=== PATIENT | female | born 1965 | race Caucasian/White ===

== ENCOUNTER 2017-01-19 04:19 | Emergency (ER) | payer BC, OTHER ==
[~2017-01-19] VITALS: Ht 165.1 cm; Wt 80.3 kg
[~2017-01-19 04:19] MED LIST: ASPIRIN81 MG PO; EXTRA STRENGTH500 MG PO; IBUPROFEN600 MG PO; LISINOPRIL2.5 MG PO; PRILOSEC20 MG PO; PSEUDOEPHEDRINE60 MG PO; SYNTHROID150 MCG PO; TRIAMTERENE-HC1 EAC1 PO; ULTRAM50 MG PO
[2017-01-19] MEDS ORDERED: LOSARTAN POTASS25 MG PO (04:56)
[2017-01-19] MEDS ORDERED: VITAMIN D1000 UNI1 PO (04:56)
[2017-01-19] MEDS ORDERED: PROTONIX40 MG PO (06:54)
--- NOTE | 2017-01-20 07:41 | EKG ---
[facility] [address] [facility] [place] [address] Signed Normal sinus rhythm Normal ECG No previous ECGs available Confirmed by ABEL CARVAJAL MD ([id number]) on 01/20/2017 7:41:28 AM Electronically Signed By: ABEL CARVAJAL MD 01/20/17 0741 PATIENT NAME: DIOMEDES BAER Electrocardiogram DATE OF : 61 PHYSICIAN: ABEL CARVAJAL MD REPORT #: [id number] REPORT IS CONFIDENTIAL AND NOT TO BE RELEASED WITHOUT AUTHORIZATION
== END 2017-01-19 07:40 | disposition home or self-care (01) ==
LOC: ED 04:19
DX: R07.2 Precordial pain (principal); I10 Essential (primary) hypertension; K21.9 Gastro-esophageal reflux disease without esophagitis; E03.9 Hypothyroidism, unspecified; Z79.899 Other long term (current) drug therapy
CPT/HCPCS: 71010; 80053; 84484; 85025; 85610; 85730; 93005; 93010; 96374; 99284

== ENCOUNTER 2019-03-09 19:40 | Emergency (ER) | payer BC, OTHER ==
[~2019-03-09] VITALS: Ht 165.1 cm; Wt 84.8 kg
[~2019-03-09 19:40] MED LIST changes: +LOSARTAN POTASS25 MG PO; +PROTONIX40 MG PO; +VITAMIN D1000 UNI1 PO
[2019-03-09] MEDS ORDERED: B COMPLEX WITH1 EACH PO (20:12)
[2019-03-09] MEDS ORDERED: AUGMENTIN 875-1 EACH PO (20:15)
[2019-03-09] MEDS ORDERED: [UNRECOGNIZED DRUG - OTHER] PO (20:15)
== END 2019-03-09 21:55 | disposition home or self-care (01) ==
LOC: ED 19:40
DX: B34.9 Viral infection, unspecified (principal); I10 Essential (primary) hypertension; E03.9 Hypothyroidism, unspecified; Z88.7 Allergy status to serum and vaccine; Z88.8 Allergy status to other drugs, medicaments and biological substances; Z79.899 Other long term (current) drug therapy
CPT/HCPCS: 87502; 99284

== ENCOUNTER 2019-08-15 09:17 | Day surgery (SDC) | payer BC, OTHER ==
[~2019-08-15] VITALS: Ht 165.1 cm; Wt 84.8 kg
[~2019-08-15 09:17] MED LIST changes: +AUGMENTIN 875-1 EACH PO; +B COMPLEX WITH1 EACH PO; +OMEPRAZOLE20 MG PO; +[UNRECOGNIZED DRUG - OTHER] PO
--- NOTE | 2019-08-16 00:40 | OR ---
[facility] [address] [place], [place] [address] Signed DATE OF OPERATION: 08/15/2019 SURGEON: Fredy Winters MD PREOPERATIVE DIAGNOSES: 1. Burping. 2. Father with stomach cancer. 3. Gastroduodenitis (2017). 4. Mild esophageal dysmotility (2017). POSTOPERATIVE DIAGNOSIS: Mild gastroduodenitis. PROCEDURE: EGD with CLOtest and biopsies of the pyloric bulb, antrum, and mid esophagus. ESTIMATED BLOOD LOSS: None. INDICATIONS: Diomedes is a 54-year-old female, who was asked to see me for her upper endoscopy. She was complaining of frequent burping. She said it was actually driving her crazy. She tried Pepcid and other icsy-myp-shqhzjx medications without success. When she went on omeprazole from her primary care provider, she said within a few days she was feeling much better. By the end of two weeks, she said it is much better. However, she is concerned because her father had some type of stomach cancer when she was quite young. We did do an upper endoscopy for her in 2017. At that time, she had gastroduodenitis with a negative CLOtest. She also had a barium swallow at that time, which did not reveal hiatal hernia. However, she had some mild esophageal dysmotility. Her more recent blood work showed negative H pylori. I had met with Diomedes in the office. I gave her a pamphlet on upper endoscopy. We did review the nature of that test along with its risks including, but not limited to gas bloating, crampy abdominal pain, bleeding, perforation requiring surgery, and missed diagnosis. We also discussed the need for IV conscious sedation. She had told us that she is a light weight and it does not take much to put her out. She had expressed understanding and wished to proceed. PROCEDURE NOTE: Diomedes was taken into our endoscopy suite and placed in the supine semi-recumbent position. The posterior oropharynx was anesthetized with Hurricaine spray. A bite block was utilized for the case. She was given 5 mg of Versed and 100 mcg of fentanyl Electronically Signed By: FREDY WINTERS MD 08/16/19 0040 PATIENT NAME: DIOMEDES BAER OPERATIVE REPORT DATE OF : 61 REPORT #: [id number] PHYSICIAN: FREDY WINTERS MD PCP: THANIA PONCE REPORT IS CONFIDENTIAL AND NOT TO BE RELEASED WITHOUT AUTHORIZATION [facility] [address] [place], [place] [address] Signed to cover the whole case. The adult gastroscope had been introduced and advanced under direct visualization out into the third portion of the duodenum. The duodenum was unremarkable. However, the pyloric bulb and the stomach showed some mild patchy erythematous changes. She more than likely has resolving gastroduodenitis on her omeprazole. We went and took a biopsy from the pyloric bulb as well as the antrum for pathologic review. We took an additional biopsy of the antrum for CLOtest. Upon retroflexion of the scope, she really does not have much of anything in the way of a hiatal hernia. The scope was then withdrawn up through the area of GE junction, which was compliant without stricture. We saw no ulcerations in the pyloric channel or the stomach. No evidence of any cancer. Her GE junction was compliant without stricture. The Z-line is very minimally disrupted. There was no Aguillon's mucosa. There was no distal esophagitis. The distal, middle and upper esophagus were unremarkable. We went ahead and took a biopsy of the midesophagus because of previous history of mild esophageal dysmotility on her barium swallow. After this, the gas had been suctioned out and the gastroscope removed. Diomedes tolerated the procedure quite well. RECOMMENDATIONS: I will see Diomedes back in my office in 7 to 14 days to review her results. In the meantime, she will stay on her omeprazole. MD DIVINA Anderson/SHONDAL /[id number] cc: MD Felipe Anderson PA Copies: FREDY WINTERS MD, BRYAN LEE PA ~ Electronically Signed By: FREDY WINTERS MD 08/16/19 0040 PATIENT NAME: DIOMEDES BAER OPERATIVE REPORT DATE OF : 61 REPORT #: [id number] PHYSICIAN: FREDY WINTERS MD PCP: THANIA PONCE REPORT IS CONFIDENTIAL AND NOT TO BE RELEASED WITHOUT AUTHORIZATION
--- NOTE | 2019-08-17 14:10 | PATH ---
[facility] [address] [place], [place] [address] Signed SPECIMEN(S): A DUODENAL BIOPSY SPECIMEN(S): B ANTRUM/ANTRAL BIOPSY SPECIMEN(S): C MID ESOPHAGEAL BIOPSY SPECIMEN SOURCE: A. DUODENAL BIOPSY B. ANTRUM/ANTRAL BIOPSY C. MID ESOPHAGEAL BIOPSY CLINICAL HISTORY: Indigestion, family history of stomach CA. Postop: Gastroduodenitis. MICROSCOPIC DESCRIPTION: Histologic sections of all submitted blocks are examined by light microscopy. These findings, together with the gross examination, support the pathologic diagnosis. FINAL PATHOLOGIC DIAGNOSIS: A. Duodenum, biopsy: - Duodenal mucosa with mild increased lamina propria chronic inflammation. - Negative for dysplasia or malignancy. B. Stomach, antrum, biopsy: - Antral mucosa with mild chronic, inactive gastritis. - Negative for Helicobacter organisms on HE stain. - Negative for dysplasia or malignancy. C. Esophagus, middle, biopsy: - Squamous mucosa no histopathologic abnormality. - Negative for intestinal metaplasia, dysplasia, or malignancy. NAL:emb:C2NR GROSS DESCRIPTION: Three specimens are received in three containers, labeled "KG." A. The specimen, labeled "KG, duodenal biopsy," is received in formalin and consists of one pink-hanley soft tissue fragment that measures 0.3 cm in greatest dimension. The specimen is entirely submitted in cassette (A1). B. The specimen, labeled "KG, antrum biopsy," is received in formalin and consists of one pink-hanley soft tissue fragment that measures 0.2 cm in greatest dimension. The specimen is entirely submitted in cassette (B1). C. The specimen, labeled "KG, mid esophagus biopsy," is received in formalin PATIENT NAME: DIOMEDES BAER PATHOLOGY DATE OF : 61 REPORT #: [id number] PHYSICIAN: JENNY KIRK PCP: THANIA PONCE REPORT IS CONFIDENTIAL AND NOT TO BE RELEASED WITHOUT AUTHORIZATION [facility] [address] [place] [address] Signed and consists of one pink-hanley soft tissue fragment that measures 0.2 cm in greatest dimension. The specimen is entirely submitted in cassette (C1). JS (under the direct supervision of a pathologist) The Gross Description was prepared using a voice recognition system. The report was reviewed for accuracy; however, sound-alike word errors, addition and/or deletions may occur. If there is any question about this report, please contact Client Services. PERFORMING LABORATORY: The technical component was performed by [facility] [address] (Slackline Operator: Deepthi Hogan MD; CLIA# [id number]). [facility] [address] [place] [address] (Slackline Operator: Roderick Blair MD; CLIA# [id number]). Diagnostician: Tana Zabala MD Pathologist Electronically Signed 08/17/2019 Copies: ~ PATIENT NAME: DIOMEDES BAER PATHOLOGY DATE OF : 61 REPORT #: [id number] PHYSICIAN: JENNY KIRK PCP: THANIA PONCE REPORT IS CONFIDENTIAL AND NOT TO BE RELEASED WITHOUT AUTHORIZATION
== END 2019-08-15 12:28 | disposition home or self-care (01) ==
LOC: DS 09:17
PROVIDERS: Colon & Rectal Surgery
PROC: 0DB78ZX Excision of Stomach, Pylorus, Via Natural or Artificial Opening Endoscopic, Diagnostic (ICD-10-PCS; 2019-08-15)
PROC: 0DB28ZX Excision of Middle Esophagus, Via Natural or Artificial Opening Endoscopic, Diagnostic (ICD-10-PCS; 2019-08-15)
PROC: 0DB98ZX Excision of Duodenum, Via Natural or Artificial Opening Endoscopic, Diagnostic (ICD-10-PCS; principal; 2019-08-15 10:30)
DX: K29.50 Unspecified chronic gastritis without bleeding (principal); K29.80 Duodenitis without bleeding; E89.0 Postprocedural hypothyroidism; Z88.7 Allergy status to serum and vaccine; Z80.9 Family history of malignant neoplasm, unspecified; Z80.0 Family history of malignant neoplasm of digestive organs; Z79.899 Other long term (current) drug therapy; Z98.890 Other specified postprocedural states; Z88.8 Allergy status to other drugs, medicaments and biological substances
CPT/HCPCS: 86677; G0500; J2250; J3010; J7121

== ENCOUNTER 2020-09-05 18:20 | Observation (INO) | payer BC, OTHER ==
[~2020-09-05] VITALS: Ht 165.1 cm; Wt 91.5 kg
--- NOTE | ~2020-09-05 | OR ---
[facility] [address] [place], [place] [address] Draft DATE OF OPERATION: 09/06/2020 SURGEON: Annie Blair MD PREOPERATIVE DIAGNOSIS: Bimalleolar fracture dislocation, left. POSTOPERATIVE DIAGNOSIS: Bimalleolar fracture dislocation, left. PROCEDURE PERFORMED: Open reduction and internal fixation of left bimalleolar fracture. PARKING LOT ATTENDANT: None. ANESTHESIA: General. BLOOD LOSS: None. TOURNIQUET TIME: 49 minutes. IMPLANTS: A 7-hole 1/3 tubular plate with 10 screws total. BRIEF HISTORY: Diomedes is a 55-year-old female who suffered a ground level fall on the ice last night. She was transported to the emergency department, where they contacted me and agreed to admit the patient for surgery this morning. Risks and benefits of surgery were discussed with her and she elected to proceed. DESCRIPTION OF PROCEDURE: Once consent was obtained, she was taken to the operating room. After adequate anesthesia, she was placed on operating room table, all downside pressure points were well padded. The left leg was placed in well-padded proximal thigh tourniquet and prepped and draped in a standard sterile fashion. The leg was exsanguinated using Esmarch bandage, tourniquet inflated to 250 mmHg. The lateral side was approached 1st PATIENT NAME: DIOMEDES BAER OPERATIVE REPORT DATE OF : 61 REPORT #: [id number] PHYSICIAN: ANNIE BLAIR MD PCP: THANIA PONCE-Santiago REPORT IS CONFIDENTIAL AND NOT TO BE RELEASED WITHOUT AUTHORIZATION [facility] [address] [place], [place] [address] Draft through a longitudinal incision, carried through the skin and subcutaneous tissue and directly down on the bone. Subperiosteal dissection was taken anteriorly and posteriorly and the fracture was easily identified, distracted and cleared of debris. It was then reduced with inversion and manipulation. It was then clamped into position. The standard AO lag screw was then placed from anterior to posterior, holding the fracture well reduced. The was then placed in the posterior lateral aspect of the fibula and contoured distally to fit the bone. It was then held with the central screw and checked using image intensifier. It was found to be intact. The remaining screw holes were drilled and the distal two screws were filled with locking screws. Final radiographs showed the plate to be well placed and the fracture to be anatomically reduced. Attention was then turned to the medial side, which was approached longitudinally. The care was taken to protect the cephalic vein. The soft tissue was then dissected and the fracture was reduced. It was checked using image intensifier and 1.6 mm K-wires were placed in the posterior aspect of the malleolus. A screw was then placed from the tip of the malleolus into the body of the tibia, her bone was quite soft. The screw was applied and the K-wire was removed and a 2nd screw was placed posteriorly, secured in the malleolus in good rotation. The final radiograph showed the fracture to be well reduced and hardware in appropriate position. Both wounds were copiously irrigated with antibiotic solution, closed with 2-0 Monocryl and 3-0 nylon in interrupted fashion. Both wounds were then dressed with Allevyn dressing. Sterile cast padding and a posterior splint with stirrups. She tolerated the procedure well. All sponge, needle, and instrument counts were correct. Annie Blair MD BA/DONNA /[id number] Copies: ~ PATIENT NAME: DIOMEDES BAER OPERATIVE REPORT DATE OF : 61 REPORT #: [id number] PHYSICIAN: ANNIE BLAIR MD PCP: THANIA PONCE REPORT IS CONFIDENTIAL AND NOT TO BE RELEASED WITHOUT AUTHORIZATION
--- NOTE | 2020-09-05 20:42 | NUR ---
RECEIVED TELEPHONE REPORT FROM ED RN BARTOLO AT THIS TIME. AWAITING pt ARRIVAL TO FLOOR.
--- NOTE | 2020-09-05 22:00 | NUR ---
THIS PHARMACOLOGIST WHEELED PT TO THE MEDSUR FLOOR VIA ED BED, 3 PERSON TRANSFER OF PT TO NEW BED, VITALS DONE, JUDICIAL CLERK IN FOR ASSESMENT
--- NOTE | 2020-09-05 22:55 | NUR ---
IN TO ASST RN WITH PUTTING PT ON THE BEDPAN, PT WILL CALL WHEN READY
--- NOTE | 2020-09-05 22:56 | NUR ---
pt ARRIVED TO THE FLOOR AT 2205 VIA ED STRETCHER. ABLE TO ASSIST WITH TRANSFER AND SCOOTED SELF TO BED. A/OX4, VSS. IV FLUIDS STARTED AND INFUSING AT 125MLS.HR, SITE WNL AND FLUSHES EASILY. RR 17, EVEN AND UNLABORED, PRN DILAUDID GIVEN FOR 9/10 PAIN IN LLE. BOOT IN PLACE. GENERALIZED EDEMA WITH DEVELOPING BRUISING NOTED, PEDAL PULSE OBTAINED VIA DOPPLER. pt PLACED ON BED SUTHERLAND PER pt REQUEST, INSTRUCTED TO CALL SKETCH MAKER WHEN COMPLETE. pt VERBALIZED UNDERSTANDING, NO FURTHER NEEDS. CALL LIGHT IN REACH.
--- NOTE | 2020-09-05 23:19 | NUR ---
IV PUMP ALARMING, ISSUE RESOLVED. SITE WNL, FLUIDS RESUMED PER MD ORDERS. pt DROWSY, RR EVEN AND UNLABORED. O2 SAT IN THE 90'S, HR WNL. pt DENIES VOIDING, BUT WISHES TO REMAIN ON BED SUTHERLAND. WILL MONITOR, CALL LIGHT IN REACH.
--- NOTE | 2020-09-05 23:30 | NUR ---
IN TO CHECK ON PT, PT COULD NO LONGER FEEL URGE TO VOID, PT ABLE TO PULL BEDPAN OUT, NO FURTHER NEEDS AT THIS TIME
--- NOTE | 2020-09-06 00:20 | NUR ---
pt NPO AT THIS TIME FOR TENATIVE SURGERY, NO FURTHER NEEDS. CALL LIGHT IN REACH.
--- NOTE | 2020-09-06 00:55 | NUR ---
IN TO CHE PT STOPPED DRINKING WATER PER NPO @ 12MIDNIGHT, PT IS RESTING AT THIS TIME
--- NOTE | 2020-09-06 01:50 | NUR ---
IN TO GET 2AM VITALS, PT ASK TO GET ON THE BEDPAN FOR A VOID ATTEMPT, WILL CALL WHEN READY
--- NOTE | 2020-09-06 02:03 | NUR ---
IN TO REMOVE SOILED DRAWSHEET, IV PUMP BEEPING AT THIS TIME, AN RN HAS BEEN INFORMED, NO FURTHER NEEDS AT THIS TIME
--- NOTE | 2020-09-06 02:05 | NUR ---
voided large amounts of urine, pad, gown and bedding changed. Coop.
--- NOTE | 2020-09-06 03:27 | NUR ---
pt RESTING QUIETLY IN BED, AWAKENS TO VOICE. DENIES NEEDS AT THIS TIME. CALL LIGHT IN REACH. RR EVEN AND UNLABORED.
--- NOTE | 2020-09-06 06:45 | NUR ---
AM VITALS DONE, PUT PT ONTO BEDPAN, WILL CALL WHEN READY
--- NOTE | 2020-09-06 06:55 | NUR ---
ASSESSMENT COMPLETE, NO NEW CHANGES OR CONCERNS. pt DENIES PAIN AT REST, PEDAL PULSE TO LEFT FOOT OBTAINED VIA DOPPLER. BOOT REMAINS IN PLACE. NEW BAG IV FLUIDS HUNG AND INFUSING AT 125MLS/HR, SITE WNL. pt RECENTLY SEEN BY DR AKERS, NEW ORDERS RECEIVED. LR WITH STRAIGHT TUBING HUNG BY HAT BODY SORTER MANDY. pt PLACED ON BEDPAN FOR POSSIBLE BM, INSTRUCTED TO CALL WHEN DONE. pt VERBALIZED UNDERSTANDING. CALL LIGHT IN REACH.
--- NOTE | 2020-09-06 07:30 | NUR ---
Pt up to commode. Remains non-weight bearing on LLE d/t fx. Voided 350 mls clear yellow urine. Back to bed. Pt reports minimal pain at rest, boot on LLE, bruising to left parker and mild-moderate swelling noted. CMS assessment WNL. Pre-surgical wipedown completed. Unable to have pt sign informed consent as still needs MD signature. Pt reports Dr. Blair explained procedure to her this am. Will send consent form w/ pt to surgery. Wedding ring removed and placed in sterile cups w/ pt name and room number. LR hung on straight tubing w/ ancef. Pt awaiting surgery. No other needs. Call light in reach.
[2020-09-06] MEDS ORDERED: LEVOTHYROXINE112 MCG PO (08:07)
--- NOTE | 2020-09-06 08:15 | NUR ---
PATIENT OFF FLOOR FOR SURGERY
--- NOTE | 2020-09-06 09:45 | NUR ---
Attempted to see pt, she has gone to surgery.
[2020-09-06] MEDS ORDERED: DICLOFENAC SOD100 G1 TOP (10:15)
--- NOTE | 2020-09-06 10:15 | NUR ---
Notified by special agent in charge, pt will dc from PACU.
[2020-09-06] MEDS ORDERED: CALCIUM CIT 311 EACH PO (10:18)
[2020-09-06] MEDS ORDERED: HYDROCODON-ACE1 EA11 PO ×2 (10:33→10:39)
[2020-09-06] MEDS ORDERED: DICLOFENAC SODI75 MG PO (10:33)
--- NOTE | 2020-09-06 10:35 | NUR ---
09/06/20 1035 Yolis Presley 1028- PT ARRIVES TO PACU NONAROUSABLE TO NOXIOUS STIMULI. RESP EVEN AND UNLABORED. OXYGEN SAT HIGH 90'S TO 100% ON 6L VIA MASK. 1031- ICE PACKS APPLIED TO PT'S LEFT ANKLE WITH DRESSING IN BETWEEN SKIN AND ICE PACK.
--- NOTE | 2020-09-06 11:05 | NUR ---
PT ARRIVED FROM PACU VIA STRETCHER @ 6423. VSS. PT DENIES PAIN AT THIS TIME. VERBALLY RESPONSIVE TO GENTLE SHAKE. ABLE TO FOLLOW COMMANDS, REMAINS VERY DROWSY AFTER ANESTHESIA MEDICATIONS. LLE ELEVATED W/ ICE IN PLACE. TOES ARE WARM AND PINK. REPORTS LLE NUMBNESS AND UNABLE TO MOVE TOES AT THIS TIME. ABLE TOLERATE SIPS OF WATER. REQUESTING FOOD. WILL ADVANCE DIET TOLERATED.
--- NOTE | 2020-09-06 11:30 | NUR ---
WENT TO CHECK ON PT-SEWER CONTRACTOR INFORMED ME PT TAKEN TO OR FOR SURGERY. WILL FOLLOW
--- NOTE | 2020-09-06 11:45 | NUR ---
PT MORE AWAKE AND ALERT. TOLERATING JELLO WELL. REQUESTING TO EAT SOUP AND SANDWICH. PT CONTINUES TO DENY NAUSEA OR PAIN. LUNCH ORDERED. IVF INFUSING INTO LFA. CALL LIGHT IN REACH.
--- NOTE | 2020-09-06 12:05 | NUR ---
VSS. PT REQUESTING TO USE BEDPAN. CALL LIGHT IN REACH.
--- NOTE | 2020-09-06 12:33 | NUR ---
PATIENT USED BEDPAN, SOAKED BED, LINENS CHANGED. PATIENT EAGER TO EAT LUNCH. LEFT LEG ELEVATED, ICE TO ANKLE. CALL LIGHT IN REACH, VISITOR NOW IN ROOM
--- NOTE | 2020-09-06 13:00 | NUR ---
PT TOLERATED LUNCH WELL. BROUGHT CLOTHES FOR DC HOME. RAC IV DC'D. PT REQUESTING TO USE COMMODE TO VOID.
--- NOTE | 2020-09-06 13:45 | NUR ---
PT BEGAN C/O 3/10 LEFT SHARP/CRAMPING, AXILLARY/CHEST PAIN AT REST @ 1325. PT THEN REPORTED CHEST PAIN SUBSIDED 5 MIN LATER, ONLY TO RETURN WITHIN 5 MIN. PT DENIES SOB. VSS. BP 168/75, HR 74, SPO2 96%. DR. AKERS CALLED AND ORDERS FROM CAYETANO PARKER, FOR EKG & CHEST X-RAY @ 1340. PT REMAINS IN ROOM. CALL LIGHT IN REACH.
--- NOTE | 2020-09-06 14:00 | NUR ---
CAYETANO PARKER, CALLED TO INITIATE FULL CHEST PAIN WORK-UP AND CHEST X-RAY TODAY APPEARS TO POSSIBLY HAVE SOME ABNORMALITIES. LAB CALLED TO DRAW TROPONIN. NEW ORDERS FOR CT TO R/O PE, PT REPORTS CHEST PAIN IS WORSE W/ INSPIRATION. PAIN REMAINS NO MORE THAN 3/10. UPDATED PT AND THAT SHE WILL LIKELY NOT BE GOING HOME TODAY.
--- NOTE | 2020-09-06 14:20 | NUR ---
PT HELPED TO COMMODE TO VOID, TOE-TOUCH LLE, 1 PA. IVF DISCONNECT. PT TRANSFERRED TO WHEELCHAIR AND OFF TO CT. WENT HOME, WILL RETURN IF NEEDED.
--- NOTE | 2020-09-06 14:30 | NUR ---
Notified pt returned to the floor from PACU. Spoke with pt and spouse. Pt plans on dc home, but had complained of cp, she is being worked up for this. Pt lives in [place] with her spouse. Will need a walker on discharge and eventually a scooter. Texted Octavia Benitez and requested Rx and notes, I can send to [facility] as requested by pt. Pt lives in 1 story home, with spouse. Pt denies needs for other DME, denies fincial concerns. She works for [employer] and plans on working from home until her ankle heals. DC to home when cleared medically with spouse.
--- NOTE | 2020-09-06 14:45 | NUR ---
PT RETURNED FROM CT. CHEST/AXILLARY PAIN DECREASED. RESTING IN BED. LLE ELEVATED W/ ICE. CALLS APPROPRIATELY TO USE COMMODE. CALL LIGHT IN REACH.
--- NOTE | 2020-09-06 15:00 | NUR ---
CMS ASSESSMENT TO LLE WNL. PALPATED PULSE ON BIG TOE. LLE WARM, BRISK CAP REFILL, PT UNABLE TO MOVE TOES YET. DOES REPORT MINIMAL PAIN W/ MOVEMENT.
[2020-09-06] MEDS ORDERED: CELECOXIB200 MG PO (15:14)
--- NOTE | 2020-09-06 15:15 | NUR ---
MED REC COMPLETE
--- NOTE | 2020-09-06 15:40 | NUR ---
MESSAGE FROM ELENA MCCAULEY, TO CONTINUE TO OBSERVE PATIENT AFTER GIVING [place]ARTAN AND OKAY TO DISCHARGE LATER IF PATIENT FEELS BETTER.
--- NOTE | 2020-09-06 16:00 | NUR ---
PT REPORTS CHEST PAIN HAS BEEN RELIEVED, THOUGH STATES SHE HAS FELT TIGHT IN LEFT ARMPIT/CHEST AREA, STATES SHE THINKS IT MIGHT OF BEEN FROM WHEN SHE FELL YESTERDAY, POSSIBLY PULLED OR STRAINED A MUSCLE. RESTING IN BED. LLE ELEVATED W/ ICE IN PLACE. CALL LIGHT IN REACH.
--- NOTE | 2020-09-06 17:18 | EKG ---
[facility] [address] [facility] [place] [address] Signed Normal sinus rhythm Nonspecific T wave abnormality Prolonged QT Abnormal ECG When compared with ECG of 19-JAN-2017 04:31, Nonspecific T wave abnormality now evident in Inferior leads Nonspecific T wave abnormality now evident in Anterolateral leads Confirmed by ABEL CARVAJAL MD ([id number]) on 09/06/2020 5:18:13 PM Electronically Signed By: ABEL CARVAJAL MD 09/06/20 1718 PATIENT NAME: DIOMEDES BAER WYATT Electrocardiogram DATE OF : 61 PHYSICIAN: ABEL CARVAJAL MD REPORT #: [id number] REPORT IS CONFIDENTIAL AND NOT TO BE RELEASED WITHOUT AUTHORIZATION
--- NOTE | 2020-09-06 17:19 | EKG ---
[facility] [address] [facility] [place] [address] Signed Normal sinus rhythm Prolonged QT Abnormal ECG When compared with ECG of 05-SEP-2020 20:26, (Unconfirmed) Nonspecific T wave abnormality no longer evident in Inferior leads Nonspecific T wave abnormality, improved in Anterior leads Confirmed by ABEL CARVAJAL MD ([id number]) on 09/06/2020 5:19:17 PM Electronically Signed By: ABEL CARVAJAL MD 09/06/20 1719 PATIENT NAME: DIOMEDES BAER Electrocardiogram DATE OF : 61 PHYSICIAN: ABEL CARVAJAL MD REPORT #: [id number] REPORT IS CONFIDENTIAL AND NOT TO BE RELEASED WITHOUT AUTHORIZATION
--- NOTE | 2020-09-06 17:20 | NUR ---
CAYETANO PARKER CALLED AND PT WILL REMAIN OVERNIGHT TO MONITOR AFTER CHEST PAIN EPISODE. DISCUSSED W/ PT WHO IS HAPPY W/ DECISION. LIKELY TO DC EARLY TOMORROW MORNING.
--- NOTE | 2020-09-06 19:00 | NUR ---
SHIFT REPORT RECEIVED FROM TAMARNVJASON VILLARREAL AT BEDSIDE. pt AWAKE AND RESTING IN BED. LLE ELEVATED WITH PILLOW. NEW ICE PACKS REPLACED PER pt REQUEST ALONG WITH ICE TEA. pt DENIES FEELING TO LLE AND UNABLE TO MOVE AT THIS TIME, CAP REFILL WNL. PULSE FELT ON TOP OF LEFT BIG TOE. SKIN WARM TO THE TOUCH AND PINK IN COLOR. CAST/ALBERTO WRAP DRESSING C/D/I. WILL MONITOR. VISITORS IN ROOM. DENIES NEEDS, CALL LIGHT IN REACH.
--- NOTE | 2020-09-06 20:20 | NUR ---
IN TO GET PT UP TO THE BSC, PT ABLE TO TRANSFER SELF OVER, WILL CALL WHEN READY
--- NOTE | 2020-09-06 21:34 | NUR ---
PM VITALS DONE, PT C/O OF A HEADACHE, PRIMARY RN INFORMED, NO FURTHER NEEDS AT THIS TIME
--- NOTE | 2020-09-06 21:55 | NUR ---
ASSESSMENT COMPLETE, SCHEDULED MEDS GIVEN (SEE EMAR). pt REPORTS TOLERABLE 4/10 PAIN R/T HEADACHE. SCHEDULED PAIN MEDICATION GIVEN (SEE EMAR). EDUCATION GIVEN AND DISCUSSED PAIN CONTROL WITH pt, pt WISHES TO TAKE SCHEDULED VOLTAREN AT THIS TIME. WILL NOTIFY METAL MOULDER IF SHE WISHES TO TAKE PRN NORCO. pt DENIES FEELING AND ABILITY TO MOVE LLE, CAST DRESSING C/D/I. CAP REFILL BRISK AND WNL, PINK IN COLOR AND WARM TO THE TOUCH. LLE REMAINS ELEVATED AND ICE IS IN PLACE. STRONG PULSE NOTED TO TOP OF LEFT BIG TOE. pt AGREES TO USE CALL LIGHT DURING THE NIGHT BEFORE GETTING OOB D/T SAFETY. IV SITE WNL, FLUSHES EASILY. NO FURTHER NEEDS, CALL LIGHT IN REACH. I&O'S AND VS PREVIOUSLY DONE BY MOLLY SOSA, BOTH WNL.
--- NOTE | 2020-09-06 23:36 | NUR ---
pt RESTING IN BED, EYES CLOSED. RR WNL AND IS EVEN AND UNLABORED. NO DISTRESS OR SIGNS OF PAIN NOTED. LLE REMAINS ELEVATED, ICE PRN TOLERATED. NO FURTHER NEEDS. CALL LIGHT IN REACH.
--- NOTE | 2020-09-07 00:30 | NUR ---
pt RESTING IN BED, DENIES NEEDS OR CONCERNS. pt UNABLE TO FEEL BELOW KNEE, UNCHANGED SINCE START OF SHIFT. CAP REFILL WNL, COLOR PINK AND SKIN WARM TO THE TOUCH. PULSE NOTED TO TOP OF LEFT BIG TOE. DRESSING ALSO UNCHANGED. pt DENIES NEED TO BE REPOSITIONED, LLE ADJUSTED. REMAINS ELEVATED WITH PILLOW. NO FURTHER NEEDS, CALL LIGHT IN REACH.
--- NOTE | 2020-09-07 02:05 | NUR ---
ASSESSMENT COMPLETE, VSS. pt REPORTS TOLERABLE 1/10 PAIN IN LLE. pt REPORTS SENSATION DISTAL THE ANKLE, EDUCATION DISCUSSED ON PAIN CONTROL. pt AGREES TO TAKE PRN NORCO (SEE EMAR). DENIES NAUSEA, BT ACTIVE. DRESSING TO LLE REMAINS UNCHANGED. LLE ELEVATED WITH ICE IN PLACE. STRONG PULSE NOTED TO LEFT BIG TOE, SKIN COLOR PINK AND WARM TO THE TOUCH. NO FURTHER NEEDS, CALL LIGHT IN REACH. LAB IN ROOM FOR SCHEDULED TROPONIN.
--- NOTE | 2020-09-07 02:45 | NUR ---
CALL LIGHT ANSWERED, pt ASSISTED FROM BATHROOM SBA WITH FWW TO BED, TOLERATED WELL. NO FURTHER NEEDS AT THIS TIME, CALL LIGHT IN REACH.
--- NOTE | 2020-09-07 06:20 | NUR ---
AM VITALS DONE, NEW ICE PACKS PROVIDED AT THIS TIME, NO FURTHER NEEDS
--- NOTE | 2020-09-07 07:13 | NUR ---
REPORT RECEIVED FROM OSWALDO MATHIS. PT RESTING ON BACK WITH EYES CLOSED. HEAD OF BED ELEVATED TO 30 DEGREES. RESPIRATIONS EVEN AND UNABLORED. LEFT LEG ELEVATED ON 2 PILLOWS WITH [address] BED RAILS UP. CALL LIGHT WITHIN REACH. PT ALLOWED TO REST.
--- NOTE | 2020-09-07 07:16 | NUR ---
PT LYING IN BED. EYES CLOSED. RR WNL WITH UNLABORED BREATHING. SHIFT REPORT RECIEVED BY RN. CALL LIGHT IN REACH.
--- NOTE | 2020-09-07 07:50 | NUR ---
PATIENT SITTING UP IN BED. AM CARE AND ORAL CARE DONE. WARM WASHCLOTH GIVEN. CALL LIGHT IN REACH. NO FURTHER NEEDS AT THIS TIME.
--- NOTE | 2020-09-07 08:26 | NUR ---
MORNING ASSESSMENT AND MEDICATION DUE. PT RESTINGIN BED WITH HEAD OF BED ELEVATED TO 17 DEGREES. PT REPORTS 1/10 ACHING PAIN BUT STATES CONCERN THAT PAIN IS INCREASING AND SHE WOULD LIKE PAIN MEDICATION PRIOR TO GETTING UP OR "GOING HOME." PT CONTINUES TO HAVE WEAKNESS IN LEFT LEG. PT UNABLE TO MOVE TOES OF LEFT LEG. PT REPORTS NUMBNESS CONTINUES IN LEFT LOWER LEG UP UNTIL MID THIGH. STRONG PULSES NOTED IN LEFT BIG TOE. PT DENIES CHEST PAIN. DRESSING TO LEFT LOWER EXTREMITY C/D/I. MEDICATIONS GIVEN BY OSWALDO ROMAN (SEE MAR). PT REPORTS PAIN WITH FLUSHING OF IV. ELENA MONTEIRO, TO BEDSIDE FOR ROUNDS. CAYETANO STATES TO DC IV AT THIS TIME AND NO ADDITIONAL IV IS NEEDED. CAYETANO ASKED ABOUT ANCEF ABX AND IF IT NEEDS TO BE CONTINUED, STATES NO NEED TO CONTINUE ANCEF AT THIS TIME. IV DC'D PER PROTOCOL. GAUZE AND COBAN APPLIED, TIP INTACT. CÉSAR UPDATED ON PTS NUMBNESS AND LACK OF MOVEMENT TO TOES IN LEFT FOOT. CAYETANO DOES EDUCATION WITH PT, STATING THE BLOCK SHOULD WEAR OF IN 24 HOUR AND PT CAN CONTACT MD IF NUMBNESS OR MOVEMENT DIFFICULTY CONTINUES AFTER THAT TIME. PT ENCOURAGED TO KEEP PAIN UNDER CONTROL BY ELENA MONTEIRO. ICE PACK X2 REMAINS ON LEFT LEG. LEFT LEG ELEVATED ON TWO PILLOWS. PT DECLINES TIME UP TO CHAIR AT THIS TIME. ADDITIONAL BREAKFAST ORDER PLACED PT DID NOT LIKE HER FIRST BREAKFST. NO ADDITIONAL REQUESTS OR COMPLAINTS. HEAD OF BED ELEVATED TO 36 DEGREES. BED RAILS UP. CALL LIGHT WITHIN REACH.
--- NOTE | 2020-09-07 08:30 | NUR ---
PT LYING IN BED. DENIES SOB. PAIN 07/28. PRN PAIN MEDS GIVEN. SCHEDULED MEDS GIVEN. BP 166/84. PT STATES THAT NORMAL SYSTOLIC IS IN 140'S. ASSESSMENT COMPLETE. BOWEL TONES ACTIVE. LUNG SOUNDS CLEAR. COBAN AND DRESSING CDI ON LEFT LEG. PT C/O SOME NUMBNESS. CAP REFILLS +2 SEC. NORMAL PEDAL PULSES. PT STATES THAT SHE CANT MOVE TOES BECAUSE IT HURTS. MD IN ROOM. IV OUT AND TIP INTACT. ORDERED MEALS PER REQUEST. TOLERAING WELL. CALL LIGHT IN REACH. NO FURTHER NEEDS.
--- NOTE | 2020-09-07 10:00 | NUR ---
THIS RN TO ROOM TO CHECK ON PT. PT RESTING IN BED. PT REPORTS 1/10 ACHING PAIN IN LEFT LEG. PT REPORTS SHE IS "STARTING TO FEEL TINGLING ON THE BOTTOM OF MY FOOT." EDUCATION DONE WITH PT REGARDING EXPECTED FEELINGS AND MOVEMENTS THE BLOCK WEARS OFF. PT VERBALIZES UNDERSTANDING. PT STATES HER WILL BE PICKING HER UP AFTER LUNCH AROUND 1300. PT PLANS TO CONTINUE RESTING UNTIL THAT TIME. PT DENIES TIME UP TO CHAIR AT THIS TIME. DRESSING C/D/I, NO DRAINAGE NOTED. WARM BLANKETS AND FRESH ICE PACKS PROVIDED. LEFT LEG ELEVATED ON 2 PILLOWS WITH [address] BED RAILS UP. CALL LIGHT WITHIN REACH.
--- NOTE | 2020-09-07 10:06 | NUR ---
PATIENT IS LAYING IN BED. FRESH ICE WATER GIVEN. VITALS AND I&OS ARE DONE AND DOCUMENTED. CALL LIGHT IS IN REACH. NO FURTHER NEEDS AT THIS TIME.
--- NOTE | 2020-09-07 10:30 | NUR ---
PT ENCOURAGED TO VOID BY OSWALDO GARCIA. PT DENIES PAIN. RR WNL WITH UNLABORED BREATHING. NO FURTHER NEEDS AT THIS TIME.
--- NOTE | 2020-09-07 11:28 | NUR ---
PT LYING IN BED. EYES CLOSED. RR WNL WITH UNLABORED BREATHING. CALL LIGHT IN REACH.
--- NOTE | 2020-09-07 12:12 | NUR ---
NOON ASSESSMENT DUE. THIS RN TO ROOM. PT REPORTS 1/10 PAIN AND REPORTS THAT FEELING IS RETURNING TO HER LEFT LOWER LEG. PT IS ABLE TO MOVE TOES OF LEFT FOOT AND IDENTIFY THE TOE THAT IS TOUCHED. PT WIGGLES LEFT TOES. PT STATES SHE WOULD LIKE PAIN MEDICATION BEFORE DISCHARGE. EDUCATION DONE WITH PT REGADING TOE TOUCH WEIGHT BEARING AND AMBULATION. PT DEMONSTRATES UNDERSTANDING WITH 1 PERSON STAND BY ASSIST. CMS NOW INTACT TO LEFT LOWER EXTREMITY. PULSE NOTED IN LEFT BIG TOE. CAP REFILL WNL. SENSATION RETURNED. DRESSING TO LEFT LOWER EXTREMITY C/D/I. LEFT LEG ELEVATED ON 2 PILLOWS WITH [address] DISCHARGE EDUCATION DONE WITH PT. PT VERBALIZES UNDERSTANDING OF DISCHARGE INSTRUCTIONS, FOLLOW UP APPOINTMENT, KEEPING DRESSING DRY, TOE TOUCH AMBULATION, AND WHEN TO CALL THE DOCTOR FOR CHANGES. PT STATES HER QUESTIONS HAVE BEEN ANSWERED. PT STATES SHE SPOKE WITH THE PHARMACIST YESTERDAY AND HAS NO ADDITIONAL QUESTIONS. PT FINISHING LUNCH AND EXPECTING FAMILY AT 1300. PT STATES HER FAMILY WILL BE BRINING HER CLOTHES TO GET DRESSED. NO ADDITIONAL REQUESTS OR COMPLAINTS. CALL LIGHT WITHIN REACH. BED RAILS UP.
--- NOTE | 2020-09-07 12:27 | NUR ---
PT LYING IN BED. LEFT LEG ELEVATED. DRESSING CDI. EDUCATION GIVEN ON RISKS FOR COMPARTMENT SYNDROME AND HOW TO PREVENT IT. PT VERBALIZED UNDERSTANDING. VS STABLE. ASSESSMENT COMPLETE. PRN PAIN MED GIVEN PER REQUEST. DISCHARGE INSTRUCTIONS GIVEN. PT ASKED ABOUT TOE TOUCH BEARING. RN JOSE EXPLAINED AND DEMONSTRATED HOW IT WORKS. PT STATES THAT PHARMACY CAME YESTERDAY TO TALK ABOUT HER MEDICATIONS. NO FURTHER CONCERNS OR QUESTIONS NOTED. CALL LIGHT IN REACH. PT WILL BE TAKING HER HOME.
--- NOTE | 2020-09-07 13:05 | NUR ---
PT INDEPENDENTLY GOT DRESSED. TOLERATED WELL. PT WENT HOME WITH . DISCHARGED AT 1253PM.
== END 2020-09-07 12:55 | disposition home or self-care (01) ==
LOC: ED 18:20 → MS 18:22
PROVIDERS: ADMIT Specialist; ATTEND Specialist
PROC: 0QSH04Z Reposition Left Tibia with Internal Fixation Device, Open Approach (ICD-10-PCS; principal; 2020-09-06 09:00)
DX: S82.842A Displaced bimalleolar fracture of left lower leg, initial encounter for closed fracture (principal); R07.89 Other chest pain; I10 Essential (primary) hypertension; K21.9 Gastro-esophageal reflux disease without esophagitis; E89.0 Postprocedural hypothyroidism; I48.91 Unspecified atrial fibrillation; G89.18 Other acute postprocedural pain; W00.0XXA Fall on same level due to ice and snow, initial encounter
CPT/HCPCS: 64447; 71045; 71260; 73600; 73610; 76942; 80053; 85025; 93005; 93010; A9270; C1713; C9803; J0690; J1100; J1170; J1885; J2001; J2250; J2405; J2704; J2795; J3010; J7121; U0003